=== PATIENT | male | born 1965 | race Caucasian/White ===

== ENCOUNTER 2018-01-15 14:54 | Outpatient (CLI) | payer MEDICAID ==
--- NOTE | 2018-01-15 17:37 | XRAY Report ---
Reason: BACK PAIN,THORACIC REGION Procedure Date: 01/15/2018 Accession Number: [id number] / [id number] Procedure: XR - Shoulder 3 View LT CPT Code: FULL RESULT: EXAM: LEFT SHOULDER RADIOGRAPHY EXAM DATE: 01/15/2018 03:13 PM. CLINICAL HISTORY: BACK Pain, thoracic REGION. COMPARISON: None. TECHNIQUE: 3 views. FINDINGS: Bones: Normal. No fracture or bone lesion. Joints: No evidence of dislocation. There is moderate glenohumeral degenerative disease, with joint space narrowing and periarticular bony remodeling. Soft tissues: The visualized hemithorax is unremarkable. No soft tissue swelling. IMPRESSION: 1. No evidence of fracture or dislocation. 2. There is moderate glenohumeral degenerative disease. RADIA
--- NOTE | 2018-01-15 22:21 | Ultrasound Report ---
Reason: BACK PAIN,THORACIC REGION Procedure Date: 01/15/2018 Accession Number: [id number] / [id number] Procedure: US - Retroperitoneal CPT Code: FULL RESULT: EXAM: RENAL ULTRASOUND EXAM DATE: 01/15/2018 05:03 PM. CLINICAL HISTORY: BACK PAIN,THORACIC REGION. COMPARISON: None. TECHNIQUE: Real-time scanning was performed with static images obtained. FINDINGS: Right Kidney: 10.0 x 5.9 x 5.7 cm. A small angiomyolipoma is incidentally noted. No nephrolithiasis or hydronephrosis. Left Kidney: 11.1 x 6.2 x 5.9 cm. Tiny cortical cysts are present. No nephrolithiasis or hydronephrosis. Bladder: Bilateral jets seen. The prevoid bladder volume was 445 cc. The postvoid bladder volume was 30 cc. Other: None. IMPRESSION: No evident etiology for patient's pain. RADIA
== END 2018-01-15 14:55 | disposition home or self-care (01) ==
LOC: DI 14:54
PROVIDERS: ATTEND Nurse Practitioner
DX: M19.012 Primary osteoarthritis, left shoulder (principal); M54.6 Pain in thoracic spine; R10.9 Unspecified abdominal pain
CPT/HCPCS: 76770

== ENCOUNTER 2018-01-27 09:43 | Outpatient (CLI) | payer MEDICAID | END 2018-01-27 09:44 | disposition home or self-care (01) | LOC: RT.S 09:43 | PROVIDERS: ATTEND Nurse Practitioner | DX: R10.13 Epigastric pain (principal) | CPT/HCPCS: 93005 ==

== ENCOUNTER 2018-02-10 14:31 | Outpatient (CLI) | payer MEDICAID ==
--- NOTE | 2018-02-10 22:30 | Ultrasound Report ---
Reason: ABDOMINAL HERNIA Procedure Date: 02/10/2018 Accession Number: [id number] / [id number] Procedure: US - Abdomen Limited CPT Code: FULL RESULT: EXAM: ABDOMEN ULTRASOUND LIMITED. EXAM DATE: 02/10/2018 03:55 PM. CLINICAL HISTORY: Ventral hernia. Epigastric pain. COMPARISON: None. TECHNIQUE: Real-time scanning was performed with static images obtained. FINDINGS: Ultrasound imaging in the area of concern along the epigastric and superior periumbilical region demonstrates a small fat-containing nonreducible ventral hernia with hernia neck measuring 0.6 cm wide. IMPRESSION: Small fat-containing nonreducible ventral hernia seen in the area of clinical concern. RADIA
== END 2018-02-10 14:32 | disposition home or self-care (01) ==
LOC: DI 14:31
PROVIDERS: ATTEND Nurse Practitioner
DX: K43.9 Ventral hernia without obstruction or gangrene (principal)
CPT/HCPCS: 76705

== ENCOUNTER 2019-05-12 10:17 | Outpatient (CLI) | payer MEDICAID ==
[2019-05-12 17:37] LABS: BASOPHILS % (AUTO) 0.7 %; EOSINOPHILS # (AUTO) 0.1 10^3/uL (0.0-0.7); EOSINOPHILS % (AUTO) 2.4 %; HGB - HEMOGLOBIN 16.4 g/dL (14.0-18.0); LYMPHOCYTES # (AUTO) 2.1 10^3/uL (1.5-3.5); LYMPHOCYTES % (AUTO) 38.5 %; MEAN CORPUSCULAR HEMOGLOBIN 30.5 pg (27.0-31.0); MEAN CORPUSCULAR HGB CONC 33.1 g/dL (32.0-36.0); MEAN PLATELET VOLUME 10.3 fL (7.4-11.4); MONOCYTES # (AUTO) 0.6 10^3/uL (0.0-1.0); MONOCYTES % (AUTO) 10.6 %; NEUTROPHILS # (AUTO) 2.6 10^3/uL (1.5-6.6); NEUTROPHILS % (AUTO) 47.6 %; PLT - PLATELET COUNT 277 10^3/uL (130-450); RED BLOOD COUNT 5.38 10^6/uL (4.70-6.10); RED CELL DISTRIBUTION WIDTH 13.5 % (12.0-15.0); WHITE BLOOD COUNT 5.4 x10^3/uL (4.8-10.8)
[2019-05-12 17:45] LABS: ALBUMIN 4.2 g/dL (3.2-5.5); ALBUMIN/GLOBULIN RATIO 1.6 (1.0-2.2); ALKALINE PHOSPHATASE 42 IU/L (42-121); ALT ALANINE AMINOTRANSFERASE 28 IU/L (10-60); AST ASPARTATE AMINOTRANSFERASE 22 IU/L (10-42); BILIRUBIN,TOTAL 0.5 mg/dL (0.2-1.0); BUN - BLOOD UREA NITROGEN 15 mg/dL (6-20); CALCIUM 8.8 mg/dL (8.5-10.3); CARBON DIOXIDE - CO2 27 mmol/L (21-32); CHLORIDE 105 mmol/L (101-111); CHOL/HDL RATIO 6.8 (<5.0); CHOLESTEROL 265 mg/dL; CREATININE 0.9 mg/dL (0.6-1.2); GFR - MDRD 87 (>89); GLUCOSE 90 mg/dL (70-100); HDL CHOLESTEROL 39 mg/dL; LDL CHOLESTEROL,CALCULATED 186 mg/dL; LDL/HDL RATIO 4.8 (<3.6); SODIUM 139 mmol/L (135-145); TOTAL PROTEIN 6.9 g/dL (6.7-8.2); VLDL CHOLESTEROL 40 mg/dL
== END 2019-05-12 10:18 | disposition home or self-care (01) ==
LOC: LAB.S 10:17
PROVIDERS: ATTEND Registered Nurse
DX: J45.30 Mild persistent asthma, uncomplicated (principal)
CPT/HCPCS: 36415; 80053; 80061; 83721; 84443; 85025

== ENCOUNTER 2019-12-31 15:36 | Outpatient (CLI) | payer MEDICAID | END 2019-12-31 15:37 | disposition home or self-care (01) | LOC: COV 15:36 | PROVIDERS: ATTEND Surgery | DX: Z01.812 Encounter for preprocedural laboratory examination (principal); K43.9 Ventral hernia without obstruction or gangrene; Z20.828 Contact with and (suspected) exposure to other viral communicable diseases ==

== ENCOUNTER 2020-01-04 08:53 | Day surgery (SDC) | payer MEDICAID ==
[~2020-01-04 08:53] MED LIST: CEFAZOLIN SODIUM IN 0.9 % NACL 0 GM/0 ML BAG IV ONE
[2020-01-04] MEDS ORDERED: fentaNYL 100 MCG/2 ML VIAL IVP ONE (08:54)
[2020-01-04] MEDS ORDERED: LIDOCAINE-MPF 2% 5 ML VIAL IM ONE (08:54)
[2020-01-04] MEDS ORDERED: ONDANSETRON 4 MG/2 ML VIAL IVP ONE (08:54)
[2020-01-04] MEDS ORDERED: ACETAMINOPHEN 1,000 MG/100 ML 100 ML IV ONE (08:54)
[2020-01-04] MEDS ORDERED: ROCURONIUM 50 MG/5 ML VIAL IVP ONE (08:54)
[2020-01-04] MEDS ORDERED: MIDAZOLAM 2 MG/2 ML VIAL IVP ONE (08:54)
[2020-01-04] MEDS ORDERED: DEXAMETHASONE 4 MG/ML VIAL IVP ONE (08:54)
[2020-01-04] MEDS ORDERED: PROPOFOL 200 MG/20 ML VIAL IVP ONE (08:54)
[2020-01-04] MEDS ORDERED: ePHEDrine 50 MG/ML VIAL IVP ONE (08:54)
[2020-01-04] MEDS ORDERED: KETOROLAC 30 MG/ML VIAL IVP ONE (08:54)
[2020-01-04] MEDS ORDERED: LACTATED RINGERS 1,000 ML IV ONE ×2 (09:00→11:32)
[2020-01-04] MEDS ORDERED: CEFAZOLIN SODIUM IN 0.9 % NACL 2 GM/100 ML BAG IV ONE (09:06)
[2020-01-04] MEDS ORDERED: BUPIVACAINE 0.25% PF 30 ML VIAL ONE (09:29)
--- NOTE | 2020-01-04 09:38 | ANESTHESIA ---
Pre-Anesthesia VS, & Labs - Diagnosis open ventral hernia repair - Procedure open ventral hernia repair with mesh Vital Signs: Temp Pulse Resp BP Pulse Ox 37.4 C 80 16 122/79 96 01/04/20 09:09 01/04/20 09:09 01/04/20 09:09 01/04/20 09:09 01/04/20 09:09 Height: 5 ft 9 in Weight (kg): 81.9 kg Body Mass Index: 26.6 BMI Classification: Overweight - NPO >8 hours Home Medications and Allergies Home Medications: Ambulatory Orders Albuterol Sulfate [Proair Hfa Inhaler] 1 - 2 puffs INH Q4H PRN 12/24/19 Mometasone/Formoterol [Dulera 100 Mcg-5 Mcg Inhaler] 2 puffs INH DAILY 12/24/19 Albuterol Sulfate [Proair Hfa Inhaler] 1 - 2 puffs INH Q4H PRN 12/24/19 Mometasone/Formoterol [Dulera 100 Mcg-5 Mcg Inhaler] 2 puffs INH DAILY 12/24/19 Allergies/Adverse Reactions: Allergies Allergy/AdvReac Type Severity Reaction Status Date / Time No Known Drug Allergies Allergy Verified 01/04/20 09:25 Anes History & Medical History - Anesthetic History Anesthesia Complications: reports: No previous complications - Medical History Cardiovascular: reports: None Pulmonary: reports: Asthma (controlled with meds) Gastrointestinal: reports: GERD (controlled with diet) Urinary: reports: None Neuro: reports: None Musculoskeletal: reports: Osteoarthritis Endocrine/Autoimmune: reports: None Blood Disorders: reports: None Skin: reports: None Smoking Status: Never smoker Psychosocial: reports: No issues indicated History of Cancer?: No - Surgical History General: Other (hernia repair x3) Orthopedic: Arthroscopic surgery, Carpal Tunnel surgery Dermatologic: Skin grafts Exam General: Alert, Oriented x3, Cooperative, No acute distress Dental: WNL Mouth Openin Fingerbreadth Neck Mobility: Normal Mallampati classification: I Thyromental Distance: 4-6 cm Respiratory: Lungs clear, Normal breath sounds, No respiratory distress, No accessory muscle use Cardiovascular: Regular rate, Normal S1, Normal S2, No murmurs Mental/Cognitive Status: Alert/Oriented X3, Normal for patient Plan Anesthesia Type: General Consent for Procedure(s) Verified and Reviewed: Yes Code Status: Attempt Resuscitation ASA classification: 2-Mild systemic disease Is this case an emergency?: No
[2020-01-04] MEDS ORDERED: BUPIVACAINE 0.25% PF 30 ML VIAL SUBQ ONE (10:30)
[2020-01-04] MEDS ORDERED: HYDROcod/ACETAM 5/325 MG TABLET PO PRN (11:58)
--- NOTE | 2020-01-04 12:03 | OPERATIVE REPORT ---
Operative Report - General Procedure Date: 01/04/20 Planned Procedure: open ventral hernia repair with mesh Pre-Op Diagnosis: ventral hernia Procedure Performed: open ventral hernia repair with mesh Post Op Diagnosis: ventral hernia - Procedure Note Anesthesia Technique: General ET tube, Local Estimated Blood Loss (mL): 0 Findings: 2.5 x 4.5 in polypropylene mesh Complications: none
[2020-01-04 12:23] VITALS: BP 121/75
--- NOTE | 2020-01-04 13:04 | ANESTHESIA POST OP EVALUATION ---
Anesthesia Post Eval - Post Anesthesia Eval Vitals: Last Vital Signs Temp 36.6 C 01/04/20 12:22 Pulse 81 01/04/20 12:22 Resp 16 01/04/20 12:22 BP 121/75 01/04/20 12:22 Pulse Ox 95 01/04/20 12:22 CV Function Including HR & BP: positive: Stable Pain Control: positive: Satisfactory Nausea & Vomiting: positive: Negative Mental Status: positive: Baseline Respiratory Status: Airway Patent Hydration Status: Satisfactory Anesthesia Complications: positive: None
--- NOTE | 2020-01-04 20:04 | OPERATIVE REPORT ---
DATE OF SERVICE: 01/04/2020 Physician: J Luis Hui MD PREOPERATIVE DIAGNOSIS: Ventral hernia. POSTOPERATIVE DIAGNOSIS: Ventral hernia. PROCEDURE 1. Open ventral hernia repair with mesh. 2. Preperitoneal dissection for mesh placement. SURGEON: J Luis Hui MD SENIOR ASSET MANAGER: None. ANESTHESIA 1. General endotracheal anesthesia. 2. Local anesthesia with Marcaine. COMPLICATIONS: None. SPECIMEN: None. ESTIMATED BLOOD LOSS: None. DRAINS: None. PROSTHETIC: A 2 to 2-1/2-inch wide x 4.5-inch tall polypropylene mesh placed preperitoneal retrorectus. INDICATIONS FOR PROCEDURE: Patient is an active 54-year-old gentleman with a symptomatic ventral hernia. He presents for open repair with mesh. Risks discussed, alternatives discussed, all questions answered, and consent obtained. FINDINGS: A 4 cm fascial defect approximately 4 cm cephalad of his umbilicus. DETAILS OF PROCEDURE: Patient was properly identified and brought to the operating room and placed in supine position. General endotracheal anesthesia was induced. Sequential compression devices were placed. He was prepped and draped in a sterile fashion, given preoperative antibiotics. Local anesthetic was given throughout the procedure. A vertical 4 cm incision was made over the previously marked hernia bulge. The incision was extended left lateral the umbilicus. Dissection proceeded with cutting current. He had herniated preperitoneal adipose tissue. This was mobilized away from surrounding subcutaneous tissue down to the fascial defect. Umbilical skin was sharply excised away from the abdominal wall. He had weakness of the umbilical area, however no hernia. The hernia sac was carefully released at the fascial defect edge. A large preperitoneal retrorectus dissection was carefully developed with blunt dissection. A 2 to 2-1/2-inch wide cephalad by 4-1/2 inch tall polypropylene mesh was placed into the preperitoneal space and secured with 10 interrupted 0 Ti-Cron sutures. The fascia was then closed over the mesh with 3-point interrupted 0 Ti-Cron sutures. There were no apparent complications. Hemostasis was ensured. The umbilical skin was tacked back down to fascia with interrupted 2-0 Vicryl. Subcutaneous tissue was reapproximated with interrupted 2-0 Vicryl. Buried interrupted subdermal 3-0 Vicryl sutures were then placed. Skin was closed with a running 4-0 Monocryl subcuticular suture. Dressing was applied. He tolerated the procedure well. TD: 01/04/2020 13:39 RAYMOND
== END 2020-01-04 08:54 | disposition home or self-care (01) ==
LOC: SDS 08:53
PROVIDERS: ATTEND Surgery
DX: K43.9 Ventral hernia without obstruction or gangrene (principal); J45.909 Unspecified asthma, uncomplicated
CPT/HCPCS: 49560; 49568; C1781; J0131; J0690; J7120

== ENCOUNTER 2021-01-18 16:28 | Outpatient (CLI) | payer MEDICAID ==
--- NOTE | 2021-01-19 13:54 | XRAY Report ---
PROCEDURE: Tib/Fib LT INDICATIONS: SUBCUTANEOUS MASS OF LOWER LEG,LEFT TECHNIQUE: 2 views of the tibia and fibula were acquired. COMPARISON: None FINDINGS: Bones: No fractures or dislocations. No suspicious bony lesions. Soft tissues: No suspicious soft tissue calcifications or masses. IMPRESSION: No soft tissue masses identified. If clinical concern persists, follow-up imaging with CT or MRI is r ecommended. Reviewed by: Adia Mathews MD on 01/19/2021 1:52 PM PST Approved by: Adia Mathews MD on 01/19/2021 1:52 PM PST Station ID: [id number]
== END 2021-01-18 16:29 | disposition home or self-care (01) ==
LOC: DI.S 16:28
PROVIDERS: ATTEND Registered Nurse
DX: R22.42 Localized swelling, mass and lump, left lower limb (principal)

== ENCOUNTER 2021-01-19 07:55 | Outpatient (CLI) | payer MEDICAID ==
[2021-01-19 14:58] LABS: BASOPHILS % (AUTO) 0.8 %; EOSINOPHILS # (AUTO) 0.1 10^3/uL (0.0-0.7); EOSINOPHILS % (AUTO) 1.8 %; HCT - HEMATOCRIT 51.8 % (42.0-52.0); HGB - HEMOGLOBIN 16.7 g/dL (14.0-18.0); LYMPHOCYTES # (AUTO) 1.6 10^3/uL (1.5-3.5); LYMPHOCYTES % (AUTO) 32.3 %; MEAN CORPUSCULAR HEMOGLOBIN 29.9 pg (27.0-31.0); MEAN CORPUSCULAR HGB CONC 32.2 g/dL (32.0-36.0); MEAN CORPUSCULAR VOLUME 92.8 fL (80.0-94.0); MEAN PLATELET VOLUME 10.1 fL (7.4-11.4); MONOCYTES # (AUTO) 0.5 10^3/uL (0.0-1.0); MONOCYTES % (AUTO) 10.7 %; NEUTROPHILS # (AUTO) 2.8 10^3/uL (1.5-6.6); NEUTROPHILS % (AUTO) 54.2 %; PLT - PLATELET COUNT 257 10^3/uL (130-450); RED BLOOD COUNT 5.58 10^6/uL (4.70-6.10); RED CELL DISTRIBUTION WIDTH 13.2 % (12.0-15.0); WHITE BLOOD COUNT 5.1 x10^3/uL (4.8-10.8)
[2021-01-19 15:23] LABS: ALBUMIN 4.2 g/dL (3.2-5.5); ALBUMIN/GLOBULIN RATIO 1.6 (1.0-2.2); ALKALINE PHOSPHATASE 55 IU/L (42-121); ALT ALANINE AMINOTRANSFERASE 30 IU/L (10-60); AST ASPARTATE AMINOTRANSFERASE 24 IU/L (10-42); BILIRUBIN,TOTAL 0.8 mg/dL (0.2-1.0); BUN - BLOOD UREA NITROGEN 15 mg/dL (6-20); CALCIUM 9.1 mg/dL (8.5-10.3); CARBON DIOXIDE - CO2 27 mmol/L (21-32); CHLORIDE 102 mmol/L (101-111); CHOL/HDL RATIO 6.3 (<5.0); CHOLESTEROL 296 mg/dL; CREATININE 0.8 mg/dL (0.6-1.2); GFR - MDRD 100 (>89); GLUCOSE 95 mg/dL (70-100); HDL CHOLESTEROL 47 mg/dL; LDL CHOLESTEROL,CALCULATED 218 mg/dL; LDL/HDL RATIO 4.6 (<3.6); SODIUM 138 mmol/L (135-145); TOTAL PROTEIN 6.9 g/dL (6.7-8.2); TRIGLYCERIDES 157 mg/dL; VLDL CHOLESTEROL 31 mg/dL
[2021-01-19 15:39] LABS: THYROID STIMULATING HORMONE 1.77 uIU/mL (0.34-5.60)
== END 2021-01-19 07:56 | disposition home or self-care (01) ==
LOC: LAB.S 07:55
PROVIDERS: ATTEND Registered Nurse
DX: G43.909 Migraine, unspecified, not intractable, without status migrainosus (principal); E78.5 Hyperlipidemia, unspecified; K21.9 Gastro-esophageal reflux disease without esophagitis; J45.30 Mild persistent asthma, uncomplicated
CPT/HCPCS: 36415; 80053; 80061; 83721; 84153; 84443; 85025

== ENCOUNTER 2021-05-17 10:15 | Outpatient (CLI) | payer MEDICAID ==
--- NOTE | 2021-05-17 10:30 | XRAY Report ---
PROCEDURE: Cervical Spine 2 View INDICATIONS: STRAIN OF NECK MUSCLE, FASCIA AND TENDON TECHNIQUE: 2 view(s) of the cervical spine were acquired. COMPARISON: None. FINDINGS: Bones: No fractures or dislocations to the T1 level. Disc space narrowing at C5-6 and C6-7 with ante rior osteophytes at these levels consistent with disc disease. The lateral masses of C1 appear intact on the odontoid view. No suspicious bony lesions. Soft tissues: No prevertebral soft tissue swelling. IMPRESSION: 1. No acute abnormality of the cervical spine. 2. Degenerative disc disease at C5-6 and C6-7. Reviewed by: Oseas Louie on 05/17/2021 10:29 AM PDT Approved by: Oseas Louie on 05/17/2021 10:29 AM PDT Station ID: [id number]
== END 2021-05-17 23:59 | disposition home or self-care (01) ==
LOC: DI.S 10:15
PROVIDERS: ATTEND Emergency Medicine
DX: S16.1XXA Strain of muscle, fascia and tendon at neck level, initial encounter (principal); M47.812 Spondylosis without myelopathy or radiculopathy, cervical region; M50.322 Other cervical disc degeneration at C5-C6 level

== ENCOUNTER 2022-08-01 14:21 | Outpatient (CLI) | payer MEDICAID ==
[2022-08-01 19:46] LABS: BASOPHILS # (AUTO) 0.1 10^3/uL (0.0-0.1); BASOPHILS % (AUTO) 1.2 %; EOSINOPHILS # (AUTO) 0.1 10^3/uL (0.0-0.7); EOSINOPHILS % (AUTO) 1.9 %; HCT - HEMATOCRIT 48.3 % (42.0-52.0); HGB - HEMOGLOBIN 15.8 g/dL (14.0-18.0); LYMPHOCYTES # (AUTO) 1.9 10^3/uL (1.5-3.5); LYMPHOCYTES % (AUTO) 36.5 %; MEAN CORPUSCULAR HGB CONC 32.7 g/dL (32.0-36.0); MEAN CORPUSCULAR VOLUME 91.8 fL (80.0-94.0); MEAN PLATELET VOLUME 10.7 fL (7.4-11.4); MONOCYTES # (AUTO) 0.6 10^3/uL (0.0-1.0); MONOCYTES % (AUTO) 11.2 %; NEUTROPHILS # (AUTO) 2.5 10^3/uL (1.5-6.6); NEUTROPHILS % (AUTO) 48.8 %; PLT - PLATELET COUNT 271 10^3/uL (130-450); RED BLOOD COUNT 5.26 10^6/uL (4.70-6.10); RED CELL DISTRIBUTION WIDTH 13.7 % (12.0-15.0); WHITE BLOOD COUNT 5.2 x10^3/uL (4.8-10.8)
[2022-08-01 20:16] LABS: ALBUMIN 3.9 g/dL (3.2-5.5); ALBUMIN/GLOBULIN RATIO 1.4 (1.0-2.2); ALKALINE PHOSPHATASE 44 IU/L (42-121); ALT ALANINE AMINOTRANSFERASE 29 IU/L (10-60); AST ASPARTATE AMINOTRANSFERASE 24 IU/L (10-42); BILIRUBIN,TOTAL 0.8 mg/dL (0.2-1.0); BUN - BLOOD UREA NITROGEN 13 mg/dL (6-20); CALCIUM 8.9 mg/dL (8.5-10.3); CARBON DIOXIDE - CO2 27 mmol/L (21-32); CHLORIDE 108 mmol/L (101-111); CHOL/HDL RATIO 5.3 (<5.0); CHOLESTEROL 253 mg/dL; CREATININE 0.9 mg/dL (0.6-1.2); GFR - MDRD 86 (>89); GLUCOSE 90 mg/dL (70-100); HDL CHOLESTEROL 48 mg/dL; LDL CHOLESTEROL,CALCULATED 181 mg/dL; LDL/HDL RATIO 3.8 (<3.6); POTASSIUM 3.9 mmol/L (3.5-5.0); SODIUM 140 mmol/L (135-145); TOTAL PROTEIN 6.6 g/dL (6.7-8.2); TRIGLYCERIDES 119 mg/dL; VLDL CHOLESTEROL 24 mg/dL
[2022-08-01 20:22] LABS: THYROID STIMULATING HORMONE 1.6 uIU/mL (0.34-5.60)
== END 2022-08-01 14:22 | disposition home or self-care (01) ==
LOC: LAB.S 14:21
PROVIDERS: ATTEND Registered Nurse
DX: Z79.899 Other long term (current) drug therapy (principal); Z13.29 Encounter for screening for other suspected endocrine disorder; Z12.5 Encounter for screening for malignant neoplasm of prostate
CPT/HCPCS: 36415; 80053; 80061; 83721; 84153; 84443; 85025